=== PATIENT | male | born 1935 | race Caucasian/White ===

== ENCOUNTER 2017-08-01 13:36 | Emergency (ER) | payer MEDICARE, OTHER ==
[~2017-08-01] VITALS: Ht 182.9 cm; Wt 97.1 kg
[~2017-08-01 13:36] MED LIST: ACETAMINOPHEN325 M1 PO; AMIODARONE HCL200 MG PO; ASPIRIN EC325 MG PO; CENTRUM SILVER1 EAC3 PO; FLAXSEED1000 MG PO; GLIPIZIDE ER10 MG PO; GLIPIZIDE XL10 MG PO; HUMALOG100 UNIT/1 SUB-Q; JANUMET 50-1,01 EACH PO; JANUVIA100 MG PO; LANTUS100 UNITS/ SUB-Q; LIPITOR40 MG PO; LISINOPRIL5 MG PO; MELATONIN3 MG PO; METOPROLOL SUCC25 MG PO; MIRALAX17 GM PO; MULTI VITAMIN1 EACH PO; NITROGLYCERIN0.4 MG SL; OMEPRAZOLE40 MG PO; TRIMETHOBENZAM300 MG PO; TYLENOL325 MG PO; VITAMIN D1000 UNIT PO; VITAMIN D31000 UNI1 PO
[2017-08-01] MEDS ORDERED: NOVOLIN N100 UNIT/1 SUB-Q (13:52)
[2017-08-01] MEDS ORDERED: ELIQUIS5 MG PO (18:04)
[2017-08-01] MEDS ORDERED: NORCO 10-325 T1 EACH PO (19:11)
--- OUTSIDE RECORDS SUMMARY | 2017-08-01 19:26 | XMS | Encounter Summary ---
Demographics + + + | Address | [address] | | | [place] [address] | + + + | Home Phone | | + + + | Preferred Language | Unknown | + + + | Marital Status | | + + + | Jainism Affiliation | MET | + + + | Race | White | + + + | Ethnic Group | Not or | + + + Author + + + | Author | [facility] | + + + | Organization | [facility] | + + + | Address | Unknown | + + + | Phone | Unavailable | + + + Support +------+ + + + +-------+ | Name | Relationship | Address | Phone | +------+ + + + +-------+ ECON | [address] | | [place] | [address] | +------+ + + + +-------+ ECON | Unknown | | +------+ + + + +-------+ Care Team Providers + +------+-------+ | Care Seasonal Driver Name | Role | Phone | + +------+-------+ | Mukesh Reich MD | PCP | tel | + +------+-------+ Encounter Details +--------+ + + + + | Date | Type | Department | Care Team | Description | +--------+ + + + + | 05/23/ | Hospital | Dermatopathology | | | | 2016 | Encounter | [address] | | | | | | Mail Code: CH16D | | | | | | [facility] | | | | | | and Healing, 5th | | | | | | floor [place], [place] | | | | | | [address] | | | | | | [phone] | | | +--------+ + + + + Social History + +-------+ +--------+------+ | Tobacco Use | Types | Packs/Day | Years | Date | | | | | Used | | + +-------+ +--------+------+ | Never Smoker | | | | | + +-------+ +--------+------+ + +---+---+---+ | Smokeless Tobacco: | | | | | Never Used | | | | + +---+---+---+ + + +---------+ + | Alcohol Use | Drinks/We | oz/Week | Comments | | | ek | | | + + +---------+ + | Yes | | | rarely | + + +---------+ + + + + | Sex Assigned at | Date Recorded | | | | + + + | Not on file | | + + + as of this encounter Medications at Time of Discharge + + +---------+---------+ + + | Medication | Sig. | Disp. | Refills | Start | End Date | | | | | | Date | | + + +---------+---------+ + + | acetaminophen 325 | Take 2 tablets by | | | 06/10/20 | | | mg oral tablet | mouth every six | | | 14 | | | | hours as needed. | | | | | + + +---------+---------+ + + | atorvastatin 80 mg | Take 1 tablet by | 90 | 3 | 04/25/20 | | | oral tablet | mouth once daily. | tablet | | 17 | | + + +---------+---------+ + + | Blood Sugar | Use as directed to | 450 | 3 | 08/24/19 | | | Diagnostic (ONETOUCH | test 5 times daily | each | | 17 | | | VERIO) strip | | | | | | + + +---------+---------+ + + | cholecalciferol, | Take 1,000 Units by | | | | | | Vitamin D3, (VITAMIN | mouth once daily. | | | | | | D) 1,000 unit Oral | | | | | | | Tablet | | | | | | + + +---------+---------+ + + | citalopram 10 mg | Take 10 mg by mouth | | 3 | 11/02/19 | | | oral tablet | once daily. | | | 16 | | + + +---------+---------+ + + | ELIQUIS 5 mg oral | TAKE 1 TABLET BY | 60 | 10 | 04/23/20 | | | tablet | MOUTH TWICE DAILY | tablet | | 17 | | | | FOR STROKE | | | | | | | PREVENTION IN ATRIA | | | | | | | FIBILLATION. | | | | | + + +---------+---------+ + + | FLAXSEED OIL ORAL | Take 1 Tab by mouth | | | | | | | once daily. | | | | | + + +---------+---------+ + + | | Take 1 tablet by | 40 | 0 | 09/08/19 | | | HYDROcodone-acetamin | mouth every four | tablet | | 17 | | | ophen (NORCO) 5-325 | hours as needed. | | | | | | mg oral tablet | | | | | | + + +---------+---------+ + + | insulin aspart | Sliding scale | 15 mL | 11 | 11/30/19 | | | (NOVOLOG FLEXPEN) | 150-200=1u, | | | 17 | | | 100 unit/mL | 201-250=2u, | | | | | | subcutaneous insulin | 251-300=3u, | | | | | | pen | 301-350=4u, above | | | | | | | 350=5u (inject up to | | | | | | | 20 units total | | | | | | | daily) | | | | | + + +---------+---------+ + + | insulin glargine | 25 units once daily | 15 mL | 11 | 11/02/19 | | | (LANTUS SOLOSTAR) | adjusted as directed | | | 17 | | | 100 unit/mL (3 mL) | | | | | | | subcutaneous insulin | | | | | | | pen | | | | | | + + +---------+---------+ + + | Insulin | Use to inject | 100 | 11 | 10/26/19 | | | Syringe-Needle U-100 | insulin once daily. | Syringe | | 16 | | | 0.3 mL 31 x 5/16" | | | | | | | syringe | | | | | | + + +---------+---------+ + + | LANTUS 100 unit/mL | INJECT 30 UNITS | 10 mL | 10 | 04/30/20 | | | subcutaneous | DAILY. | | | 17 | | | solution | | | | | | + + +---------+---------+ + + | lisinopril 5 mg | Take 1 tablet by | 90 | 3 | 08/18/19 | | | oral tablet | mouth once daily. | tablet | | 16 | | + + +---------+---------+ + + | metFORMIN SR 750 | Take 1 tablet by | 90 | 11 | 01/02/20 | | | mg oral tablet | mouth three times | tablet | | 17 | | | extended release 24 | daily. With food. | | | | | | hr | | | | | | + + +---------+---------+ + + | METOPROLOL | TAKE ONE TABLET BY | 90 | 2 | 03/29/20 | | | SUCCINATE 50 mg oral | MOUTH EVERY DAY | tablet | | 17 | | | tablet extended | | | | | | | release 24 hr | | | | | | + + +---------+---------+ + + | multivitamin Oral | Take 1 Tab by mouth | | | | | | Tablet | once daily. | | | | | + + +---------+---------+ + + | JESS PEN NEEDLE 32 | USE TO TEST BLOOD | 200 | 10 | 10/27/19 | | | gauge x 5/32" | SUGAR 4 TIMES DAILY | each | | 17 | | | miscellaneous (misc) | | | | | | | needle | | | | | | + + +---------+---------+ + + | omeprazole 20 mg | Take 1 capsule by | 90 | 3 | 06/03/20 | | | oral capsule,delayed | mouth once daily. | capsule | | 15 | | | release(DR/EC) | | | | | | + + +---------+---------+ + + | UBIDECARENONE/VIT | Take 1 capsule by | | | | | | E ACETATE (Q-GEL | mouth once daily. | | | | | | ORAL) | | | | | | + + +---------+---------+ + + as of this encounter Plan of Treatment +--------+ + + + + | Date | Type | Specialty | Care Team | Description | +--------+ + + + + | 10/30/ | Procedure | Ophthalmology | | | | 2017 | | | | | +--------+ + + + + | 10/30/ | Office | Ophthalmology | Cherelle Patricia | | | 2017 | Kenan | | MD Corinne [address] | | | | | | [place], [place] | | | | | | [address] | | | | | | [phone] | | | | | | | | +--------+ + + + + as of this encounter Results DERM PATHOLOGY (05/23/2017) + + + + | Component | Value | Ref Range | + + + + | DERMATOPATHOLOGY(WET | SOURCE OF SPECIMEN:A Lt. anterior shoulder, | | | MNT) | excision CLINICAL DESCRIPTION:Bx | | | | proven BCC, previous [id number]. | | | | GROSS DESCRIPTION:Received in formalin is a | | | | specimen labeled Elder Roy:A: | | | | Specimen is labeled "L anterior shoulder" | | | | and consists of an ellipse ofcrusted | | | | wfm-kki-eiums skin, [id number]. The specimen | | | | is oriented by a sutureat one apex, which | | | | is arbitrarily designated as 12:00. With | | | | the suture inthe 12:00 position, the | | | | specimen is inked blue from 12:00-3:00-6:00 | | | | andblack from 6:00-9:00-12:00. The | | | | tissue is serially sectioned from 12:00 | | | | to6:00 and submitted respectively in | | | | cassettes A1 | | | | | | | | A6. MICROSCOPIC DESCRIPTION:There | | | | are an increased number of collagen bundles | | | | with fibrocytes arrangedparallel to the | | | | skin surface with vertically oriented blood | | | | vessels. DIAGNOSIS:SCAR. 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 Away from thescar, there is an | | | | incidental MELANOCYTIC NEVUS, INTRADERMAL | | | | TYPE, alsoexcised. My electronic | | | | signature indicates that I have personally | | | | reviewed alldiagnostic slides, the gross | | | | and/or microscopic portion of thisreport | | | | and formulated the final diagnosis. | | | | Electronically signed by: Jory | | | | Elizabeth LundbergPathologistDate Completed: | | | | 05/25/2017 11:14AM | | + + + + + + + | Specimen | Performing Laboratory | + + + | | [facility] Mailcode [facility] [address] [facility] | | | [place] [address] | + + + in this encounter Visit Diagnoses + + | Diagnosis | + + | Scar conditions and fibrosis of skin | + + | Scar condition and fibrosis of skin | + + Admitting Diagnoses + + | Diagnosis | + + | Neoplasm of uncertain behavior of skin | + +
--- OUTSIDE RECORDS SUMMARY | 2017-08-01 19:26 | XMS | Encounter Summary ---
Demographics + + + | Address | [address] | | | [place] [address] | + + + | Home Phone | | + + + | Preferred Language | Unknown | + + + | Marital Status | | + + + | Yarsanism Affiliation | MET | + + + | Race | White | + + + | Ethnic Group | Not or | + + + Author + + + | Author | [facility] | + + + | Organization | [facility] | + + + | Address | Unknown | + + + | Phone | Unavailable | + + + Support +------+ + + + +-------+ | Name | Relationship | Address | Phone | +------+ + + + +-------+ ECON | [address] | | [place] | [address] | +------+ + + + +-------+ ECON | Unknown | | +------+ + + + +-------+ Care Team Providers + +------+-------+ | Care Finance Lecturer Name | Role | Phone | + +------+-------+ | Mukesh Reich MD | PCP | tel | + +------+-------+ Reason for Visit + + + | Reason | Comments | + + + | Refill Request | [email or web address] | + + + Encounter Details +--------+--------+ + + + | Date | Type | Department | Care Team | Description | +--------+--------+ + + + | 07/27/ | Refill | Ar[facility] | Renetta Pollard | Refill Request | | 2016 | | [facility] | MD Elijah [address] | (glipiZIDE ) | | | | [facility] | [facility] | | | | | Mary [address] | [place], [place] | | | | | [facility] | [address] | | | | | [address] [facility] | [phone] | | | | | [address] | | | | | | [facility] | | | | | | [place], [place] | | | | | | [address] | | | | | | [phone] | | | +--------+--------+ + + + Social History + +-------+ [...] + + + as of this encounter Plan [...] Cherelle Patricia | | | 2017 | Visit | | MD Corinne [address] | | | | | | [place], [place] | | | | | | [address] | | | | | | [phone] | | | | | | | | +--------+ + + + + as of this encounter Visit Diagnoses Not on filein this encounter"
--- OUTSIDE RECORDS SUMMARY | 2017-08-01 19:26 | XMS | Clinical Summary ---
Demographics + + + | Address | [address] | | | [place] [address] | + + + | Home Phone | | + + + | Preferred Language | Unknown | + + + | Marital Status | | + + + | Alevism Affiliation | MET | + + + | Race | White | + + + | Ethnic Group | Not or | + + + Author + + + | Author | [facility] | + + + | Organization | [facility] | + + + | Address | Unknown | + + + | Phone | Unavailable | + + + Support +------+ + + + +-------+ | Name | Relationship | Address | Phone | +------+ + + + +-------+ ECON | [address] | | [place] | [address] | +------+ + + + +-------+ ECON | Unknown | | +------+ + + + +-------+ Care Team Providers + +------+-------+ | Care Hot Patcher Name | Role | Phone | + +------+-------+ | Mukesh Reich MD | PP | tel | + +------+-------+ Source Comments [facility] is fully live on both EpicCare Ambulatory and EpicCare InPatient.[facility] Allergies + + + + + + | Active Allergy | Reactions | Severity | Noted | Comments | | | | | Date | | + + + + + + | Penicillins | Hives | | 07/19/20 | Reaction in | | | | | 09 | 1962--red welts | | | | | | throughout | + + + + + + Current Medications + + +---------+---------+------+------+-------+ | Prescription | Sig. | Disp. | Refills | Star | End | Statu | | | | | | t | Date | s | | | | | | Date | | | + + +---------+---------+------+------+-------+ | FLAXSEED OIL ORAL | Take 1 Tab by mouth | | | | | Activ | | | once daily. | | | | | e | + + +---------+---------+------+------+-------+ | multivitamin Oral | Take 1 Tab by mouth | | | | | Activ | | Tablet | once daily. | | | | | e | + + +---------+---------+------+------+-------+ | cholecalciferol, | Take 1,000 Units by | | | | | Activ | | Vitamin D3, (VITAMIN | mouth once daily. | | | | | e | | D) 1,000 unit Oral | | | | | | | | Tablet | | | | | | | + + +---------+---------+------+------+-------+ | UBIDECARENONE/VIT | Take 1 capsule by | | | | | Activ | | E ACETATE (Q-GEL | mouth once daily. | | | | | e | | ORAL) | | | | | | | + + +---------+---------+------+------+-------+ | acetaminophen 325 | Take 2 tablets by | | | 11/1 | | Activ | | mg oral tablet | mouth every six | | | 2/20 | | e | | | hours as needed. | | | 14 | | | + + +---------+---------+------+------+-------+ | omeprazole 20 mg | Take 1 capsule by | 90 | 3 | 11/0 | | Activ | | oral capsule,delayed | mouth once daily. | capsule | | 5/20 | | e | | release(DR/EC) | | | | 15 | | | + + +---------+---------+------+------+-------+ | lisinopril 5 mg | Take 1 tablet by | 90 | 3 | 01/2 | | Activ | | oral tablet | mouth once daily. | tablet | | 0/20 | | e | | | | | | 16 | | | + + +---------+---------+------+------+-------+ | Insulin | Use to inject | 100 | 11 | 03/2 | | Activ | | Syringe-Needle U-100 | insulin once daily. | Syringe | | 04/18 | | e | | 0.3 mL 31 x 16" | | | | 16 | | | | syringe | | | | | | | + + +---------+---------+------+------+-------+ | citalopram 10 mg | Take 10 mg by mouth | | 3 | 04/0 | | Activ | | oral tablet | once daily. | | | 5/20 | | e | | | | | | 16 | | | + + +---------+---------+------+------+-------+ | ONETOUCH ULTRA | Testing 5 times | 450 | 3 | 10/1 | | Activ | | TEST | daily | each | | 4/20 | | e | | stripIndications: | | | | 16 | | | | Type 2 diabetes | | | | | | | | mellitus without | | | | | | | | complication, with | | | | | | | | long-term current | | | | | | | | use of insulin (HCC) | | | | | | | + + +---------+---------+------+------+-------+ | Blood Sugar | Use as directed to | 450 | 3 | 01/2 | | Activ | | Diagnostic (ONETOUCH | test 5 times daily | each | | 6/20 | | e | | VERIO) strip | | | | 17 | | | + + +---------+---------+------+------+-------+ | | Take 1 tablet by | 40 | 0 | 02/1 | | Activ | | HYDROcodone-acetamin | mouth every four | tablet | | 0/20 | | e | | ophen (NORCO) 5-325 | hours as needed. | | | 17 | | | | mg oral tablet | | | | | | | + + +---------+---------+------+------+-------+ | JESS PEN NEEDLE 32 | USE TO TEST BLOOD | 200 | 10 | 03/3 | | Activ | | gauge x 32" | SUGAR 4 TIMES DAILY | each | | 0/20 | | e | | miscellaneous (misc) | | | | 17 | | | | needle | | | | | | | + + +---------+---------+------+------+-------+ | insulin glargine | 25 units once daily | 15 mL | 11 | 04/0 | | Activ | | (SINA NEWMANAR) | adjusted as directed | | | 12/16 | | e | | 100 unit/mL (3 mL) | | | | 17 | | | | subcutaneous insulin | | | | | | | | pen | | | | | | | + + +---------+---------+------+------+-------+ | insulin aspart | Sliding scale | 15 mL | 11 | 05/0 | | Activ | | (NOVOLOG FLEXPEN) | 150-200=1u, | | | 3/20 | | e | | 100 unit/mL | 201-250=2u, | | | 17 | | | | subcutaneous insulin | 251-300=3u, | | | | | | | pen | 301-350=4u, above | | | | | | | | 350=5u (inject up to | | | | | | | | 20 units total | | | | | | | | daily) | | | | | | + + +---------+---------+------+------+-------+ | metFORMIN SR 750 | Take 1 tablet by | 90 | 11 | 06/0 | | Activ | | mg oral tablet | mouth three times | tablet | | 5/20 | | e | | extended release 24 | daily. With food. | | | 17 | | | | hr | | | | | | | + + +---------+---------+------+------+-------+ | METOPROLOL | TAKE ONE TABLET BY | 90 | 2 | 08/3 | | Activ | | SUCCINATE 50 mg oral | MOUTH EVERY DAY | tablet | | 1/20 | | e | | tablet extended | | | | 17 | | | | release 24 hr | | | | | | | + + +---------+---------+------+------+-------+ | ELIQUIS 5 mg oral | TAKE 1 TABLET BY | 60 | 10 | 09/2 | | Activ | | tablet | MOUTH TWICE DAILY | tablet | | 5/20 | | e | | | FOR STROKE | | | 17 | | | | | PREVENTION IN ATRIA | | | | | | | | FIBILLATION. | | | | | | + + +---------+---------+------+------+-------+ | atorvastatin 80 mg | Take 1 tablet by | 90 | 3 | 09/2 | | Activ | | oral tablet | mouth once daily. | tablet | | 7/20 | | e | | | | | | 17 | | | + + +---------+---------+------+------+-------+ | LANTUS 100 unit/mL | INJECT 30 UNITS | 10 mL | 10 | 10/0 | | Activ | | subcutaneous | DAILY. | | | 2/20 | | e | | solution | | | | 17 | | | + + +---------+---------+------+------+-------+ | glipiZIDE ER 10 mg | Take 1 tablet by | 90 | 5 | 12/2 | 12/3 | Activ | | oral tablet | mouth once daily. 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 heart without angina pectoris | | + + + | Ischemic cardiomyopathy | 04/05/2016 | + + + | Essential hypertension | 04/05/2016 | + + + | A-fib (HCC) | 06/03/2015 | + + + | Stroke (HCC) | 07/03/2014 | + + + | S/P CABG x 2 | 06/02/2014 | + + + | DM type 2 (diabetes mellitus, type 2) ([facility]) | 06/10/2011 | + + + | Hyperlipidemia with target LDL less than 100 | 06/10/2011 | + + + | Neuropathy (HCC) | 06/10/2011 | + + + | Chest pain | 06/09/2010 | + + + Encounters +--------+ + + + + | Date | Type | Specialty | Care Team | Description | +--------+ + + + + | 07/27/ | Refill | | Renetta Pollard | Refill Request | | 2016 | | | MD Elijah | ([email or web address] ) | +--------+ + + + + | 05/23/ | Hospital | | | | | 2016 | Encounter | | | | +--------+ + + + + | 05/11/ | Office | | Renetta Pollard | Controlled type 2 | | 2017 | Visit | | MD Elijah | diabetes mellitus | | | | | | without | | | | | | complication, with | | | | | | long-term current | | | | | | use of insulin (HCC) | | | | | | (Primary Dx); | | | | | | Neuropathy (HCC); | | | | | | S/P CABG x 2; | | | | | | Essential | | | | | | hypertension; | | | | | | Hyperlipidemia with | | | | | | target LDL less than | | | | | | 100 | +--------+ + + + + from Last 3 Months Family History + + +------+ + | Medical History | Relation | Name | Comments | + + +------+ + | Diabetes | Father | | | + + +------+ + | Glasses | Father | | | + + +------+ + | Glasses | Mother | | | + + +------+ + + +------+--------+ + | Relation | Name | Status | Comments | + +------+--------+ + | Father | | | | + +------+--------+ + | Mother | | | | + +------+--------+ + Social History + +-------+ +--------+------+ | [...] on file | | + + + Last Filed Vital Signs + + + + | Vital Sign | Reading | Time Taken | + + + + | Blood Pressure | 122/68 | 05/11/2017 1:51 PM PDT | + + + + | Pulse | 63 | 05/11/2017 1:51 PM PDT | + + + + | Temperature | 36.6 C (97.8 F) | 10/02/2016 2:09 PM PST | + + + + | Respiratory Rate | 17 | 10/02/2016 2:09 PM PST | + + + + | Oxygen Saturation | 96% | 12/13/2016 3:05 PM PDT | + + + + | Inhaled Oxygen | - | - | | Concentration | | | + + + + | Weight | 98 kg (216 lb) | 05/11/2017 1:51 PM PDT | + + + + | Height | 184.2 cm (6' 0.5") | 05/11/2017 1:51 PM PDT | + + + + | Body Mass Index | 28.89 | 05/11/2017 1:51 PM PDT | + + + + Plan of Treatment +--------+ + + + + | Date | Type | Specialty | Care Team | Description | +--------+ + + + + | 10/30/ | Procedure | | | | | 2018 | | | | | +--------+ + + + + | 10/30/ | Office | | Cherelle Patricia | | | 2017 | Visit | | MD Corinne [address] | | | | | | [place], [place] | | | | | | [address] | | | | | | [phone] | | | | | | | | +--------+ + + + + + + + + + | Health Maintenance | Due Date | Last Done | Comments | + + + + + | PPSV PNEUMOCOCCAL | | | | | VACCINE | 1 | | | + + + + + | CHOLESTEROL | | 06/21/2016, 06/21/2016, | | | SCREENING | 7 | 12/23/2014, Additional history | | | | | exists | | + + + + + | URINE MICROALBUMIN | | 06/21/2016, 11/07/2011, | | | | 7 | 05/29/2011, Additional history | | | | | exists | | + + + + + | CREATININE | | 08/23/2016, 06/21/2016, | | | | 8 | 12/23/2014, Additional history | | | | | exists | | + + + + + | DIABETIC EYE EXAM | | 10/24/2016, 11/18/2015, | | | | 8 | 12/24/2014 | | + + + + + | HEMOGLOBIN A1C | | 05/11/2017, 12/11/2016, | | | | 8 | 08/23/2016, Additional history | | | | | exists | | + + + + + | MONOFILAMENT FOOT | | 05/11/2017, 12/13/2016, | | | EXAM | 8 | 08/23/2016, Additional history | | | | | exists | | + + + + + Implants + +------+------+ +--------+--------+--------+ | Implanted | Type | Area | Manufacture | Device | Expira | Model | | | | | r | | tion | / | | | | | | Identi | Date | Serial | | | | | | fier | | / Lot | + +------+------+ +--------+--------+--------+ | Plate Sternum Wire Acutie - | | | ACUTE | | | [id number] | | [id number]: Qty: 2 on | | | INNOVATIONS | | | 4 / / | | 06/02/2014 | | | | | | | + +------+------+ +--------+--------+--------+ Procedures + +--------+ + + + | Procedure Name | Priori | Date/Time | Associated Diagnosis | Comments | | | ty | | | | + +--------+ + + + | GA COLLECTION | Routin | 05/11/2017 | Controlled type 2 | | | CAPILLARY BLOOD | e | 1:41 PM | diabetes mellitus | | | SPECIMEN | | PDT | without | | | | | | complication, with | | | | | | long-term current | | | | | | use of insulin (HCC) | | + +--------+ + + + from Last 3 Months Results DERM PATHOLOGY (05/23/2017) + + + + | Component | Value | Ref Range | + + + + | DERMATOPATHOLOGY(WET | SOURCE OF SPECIMEN:A Lt. anterior shoulder, | | | MNT) | excision CLINICAL DESCRIPTION:Bx | | | | proven BCC, previous [id number]. | | | | GROSS DESCRIPTION:Received in formalin is a | | | | specimen labeled Elder Roy:A: | | | | Specimen is labeled "L anterior shoulder" | | | | and consists of an ellipse ofcrusted | | | | [id number]-[id number] skin, [id number]. The specimen | | | | is [...] | + + + | | [facility] [address] [facility] | | | [place] [address] | + + + HEMOGLOBIN A1C,POC (05/11/2017 1:58 PM) + +---------+ + | Component | Value | Ref Range | + +---------+ + | HEMOGLOBIN A1C,POC | 7.4 (A) | 4.0 - 5.7 % | + +---------+ + + + + | Specimen | Performing Laboratory | + + + | Blood | [facility] [address] | | | [place] [address] | + + + from Last 3 Months
--- OUTSIDE RECORDS SUMMARY | 2017-08-01 19:27 | XMS | Encounter Summary ---
Demographics + + + | Address | [address] | | | [place] [address] | + + + | Home Phone | | + + + | Preferred Language | Unknown | + + + | Marital Status | | + + + | Anabaptism Affiliation | MET | + + + | Race | White | + + + | Ethnic Group | Not or | + + + Author + + + | Author | [facility] | + + + | Organization | [facility] | + + + | Address | Unknown | + + + | Phone | Unavailable | + + + Support +------+ + + + +-------+ | Name | Relationship | Address | Phone | +------+ + + + +-------+ ECON | [address] | | [place] | [address] | +------+ + + + +-------+ ECON | Unknown | | +------+ + + + +-------+ Care Team Providers + +------+-------+ | Care Organ Fixer Name | Role | Phone | + +------+-------+ | Mukesh Reich MD | PCP | tel | + +------+-------+ Reason for Visit + + + | Reason | Comments | + + + | Diabetes mellitus | | | type 2 | | + + + Office Visit - E/M Services (Routine) +--------+ + + + + + | Status | Reason | Specialty | Diagnoses / | Referred By | Referred To | | | | | Procedures | Contact | Contact | +--------+ + + + + + | Closed | Specialty | Endocrinology | Diagnoses | Damir, | Latrice, | | | Services | , Diabetes & | DM | Mukesh | Renetta Nava, | | | Required | Metabolism | (diabetes | MD Clay | [address] | | | | | mellitus), | JO[place] | Jony Solit[address] | | | | | type 2 (HCC) | INTERNAL | Ankita Li | | | | | Procedures | MEDICINE | [place], [place] | | | | | | [address] | [address] | | | | | [address] | [place] | Phone: | | | | | | [address] | [phone] | | | | | | [place], | Fax: | | | | | | [place] [address] | [phone] | | | | | | Phone: | | | | | | | [phone] | | | | | | | Fax: | | | | | | | [phone] | | +--------+ + + + + + Encounter Details +--------+---------+ + + + | Date | Type | Department | Care Team | Description | +--------+---------+ + + + | 05/11/ | Office | Aram Alves | Renetta Pollard | Controlled type 2 | | 2017 | Visit | Diabetes Health | MD Elijah [address] | diabetes mellitus | | | | [facility] | [address] | without | | | | [facility] [address] | [place], [place] | complication, with | | | | [address] | [address] | long-term current | | | | [facility] | [phone] | use of insulin (HCC) | | | | [facility] [address] | | (Primary Dx); | | | | [facility] | | Neuropathy (HCC); | | | | [place], [place] | | S/P CABG x 2; | | | | [address] | | Essential | | | | [phone] | | hypertension; | | | | | | Hyperlipidemia with | | | | | | target LDL less than | | | | | | 100 | +--------+---------+ + + + Social History + +-------+ [...] + + + as of this encounter Last Filed Vital Signs + + + + | Vital Sign | Reading | Time Taken | + + + + | Blood Pressure | 122/68 | 05/11/2017 1:51 PM PDT | + + + + | Pulse | 63 | 05/11/2017 1:51 PM PDT | + + + + | Temperature | - | - | + + + + | Respiratory Rate | - | - | + + + + | Oxygen Saturation | - | - | + + + + | Inhaled [...] PM PDT | + + + + in this encounter Instructions Patient Instructions - Renetta Pollard MD - 05/11/2017 1:30 PM PDTTry 6 oz of chocola te milk or other small snack in the mid afternoon Consider MyFitness Pal to track your food/activity Reduce Lantus to 28 units once daily if you continue to have the borderline lows late after noon Continue Novolog sliding scale as needed Keep juice/granola bars with you at all times in this encounter Progress Notes Kriss Mckinney MA - 05/11/2017 1:41 PM PDT Finger stick performed in clinic for a capillary A1c. Renetta Pollard MD - 05/11/2017 1:30 PM PDTFormatting of this note may be different f rom the original. Clinic: Diabetes clinic PCP: Maico Reich Follow up of Type 2 Diabetes Mellitus HPI: Elder is a 81 y.o. 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 He has never been hospitalized for diabetes. He has had 3 endocrinologists in the past. Previously on janum et bid and glipizide. This was previously stopped due to some hypoglycemia. Had no difficu lty with renal function. Prior c-peptide of 5.5. Complications: Has chronic numbness and discomfort in his feet but no new skin lesions. Eye health --Diabetic retinopathy He had CABG previously with fluctuations in his blood sugars perioperatively. Had complicat ion of infection post surgery--at right leg harvest site-healed. S/p cardiac rehab which is intermittently continued He has no history of pancreatitis or markedly high triglycerides. Interim: Here today with his and daughter Increased attention to diet Weight loss Feeling more positive today Lantus 30 units daily Metformin 750 mg ER tablets increased to 3 tablets daily. Meal time insulin 2 to 3 units plus sliding scale. Fasting blood sugars improved Occasional late afternoon borderline low if meal is missed (feels low if 100 or less) His notices personality change--unusually irritable if this occurs No severe lows He previously was on Janumet, Glipizide once daily. Subsequently Januvia was stopped and Victoza started. We recall he did not tolerate Victoza--had bloating Instructions last visit: Change to one 750 mg tablet of metformin in the morning and two at night Continue Lantus 30 units once daily at bedtime Continue glipizide 10 mg ER once daily Novolog 2 units to 3 units plus the sliding scale Add in bed time blood sugar check Call in one week to review blood sugar trends Diabetes medications: Metformin 750 mg ER , three tablets daily Glipizide 10 mg ER once daily Lantus 30 units hs Novolog sliding scale --2u meal time plus SSI Monitoring: Has a meter and monitors about 4 times daily Glucose Control: Periodic hyperglycemia that he can explain due to dietary indiscretion Lab Results Component Value Date A1C 7.4 05/11/2017 Hypoglycemia: none severe Diabetes complications review: Eyes: last eye exam - no DR Kidneys--stable creatinine Lab Results Component Value Date CR 0.76 08/23/2016 CR 0.67 (A) 06/21/2016 CR 0.87 12/23/2014 Neuropathy: some numbness and tingling chronically--but also has history of back surgery Autonomic neuropathy: no known symptoms Cardiovascular disease: CAD, s/p CABG PMH: Diabetes mellitus type 2 Metabolic syndrome Hypertension Hyperlipidemia Obesity Male erectile disorder History of back / neck surgery Bone spurs Decreased hearing No history of pancreatitis CAD, s/p CABG Influenza vaccine Apr 2014 Shingles vaccine 2007 Current Outpatient Prescriptions on File Prior to Visit Medication Sig Dispense Refill acetaminophen 325 mg oral tablet Take 2 tablets by mouth every six hours as needed. atorvastatin 80 mg oral tablet Take 1 tablet by mouth once daily. 90 tablet 3 Blood Sugar Diagnostic ([employer] VERIO) strip Use as directed to test 5 times daily 450 each 3 cholecalciferol, Vitamin D3, (VITAMIN D) 1,000 unit Oral Tablet Take 1,000 Units by jayson th once daily. citalopram 10 mg oral tablet Take 10 mg by mouth once daily. 3 ELIQUIS 5 mg oral tablet TAKE 1 TABLET BY MOUTH TWICE DAILY FOR STROKE PREVENTION IN [facility]. 60 tablet 10 FLAXSEED OIL ORAL Take 1 Tab by mouth once daily. glipiZIDE ER 10 mg oral tablet extended release 24hr Take 1 tablet by mouth once daily. Indications: TYPE 2 DIABETES MELLITUS 90 tablet 5 HYDROcodone-acetaminophen (NORCO) 5-325 mg oral tablet Take 1 tablet by mouth every fou r hours as needed. 40 tablet 0 insulin aspart (NOVOLOG FLEXPEN) 100 unit/mL subcutaneous insulin pen Sliding scale 150 -200=1u, 201-250=2u, 251-300=3u, 301-350=4u, above 350=5u (inject up to 20 units total daily ) 15 mL 11 insulin glargine (LANTUS SOLOSTAR) 100 unit/mL (3 mL) subcutaneous insulin pen 25 units once daily adjusted as directed 15 mL 11 Insulin Syringe-Needle U-100 0.3 mL 31 x 5/16" syringe Use to inject insulin once daily . 100 Syringe 11 LANTUS 100 unit/mL subcutaneous solution INJECT 30 UNITS DAILY. 10 mL 10 lisinopril 5 mg oral tablet Take 1 tablet by mouth once daily. 90 tablet 3 metFORMIN SR 750 mg oral tablet extended release 24 hr Take 1 tablet by mouth three israel es daily. With food. 90 tablet 11 METOPROLOL SUCCINATE 50 mg oral tablet extended release 24 hr TAKE ONE TABLET BY MOUTH EVERY DAY 90 tablet 2 multivitamin Oral Tablet Take 1 Tab by mouth once daily. JESS PEN NEEDLE 32 gauge x 5/32" miscellaneous (misc) needle USE TO TEST BLOOD SUGAR 4 TIMES DAILY 200 each 10 omeprazole 20 mg oral capsule,delayed release(DR/EC) Take 1 capsule by mouth once daily . 90 capsule 3 ONETOUCH ULTRA TEST strip Testing 5 times daily 450 each 3 UBIDECARENONE/VIT E ACETATE (Q-GEL ORAL) Take 1 capsule by mouth once daily. No current facility-administered medications on file prior to visit. 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 ROS: Review of systems as stated in [place]. Other pertinent review of systems includes: Weight: Wt Readings from Last 3 Encounters: 05/11/17 98 kg (216 lb) 12/13/16 97.1 kg (214 lb) 12/13/16 97.1 kg (214 lb) Gen: feeling better, more energy, going to rehab twice a week with good tolerance, has new cane for balance HEENT: no visual changes Psych: mood: less frustrated overall does not have "get up an go" CV: no chest pain, no lower extremity edema Pulm: no sob ENDO: no heat intolerance or cold intolerance--no : no polyuria--has history of episode of hematuria (none recently) Neuro: distal numbness and tingling: yes--chronic on the right foot, mild, unchanged Recurrent problems with balance improved with cane Sleep: no history of apnea . PE: Vitals: BP 122/68 | Pulse 63 | Ht 1.842 m (6' 0.5") | Wt 98 kg (216 lb) | BMI 28.89 kg/(m^2 ) General: alert, oriented, NAD HEENT: perrla, eomi, sclera anicteric Lungs: clear to auscultation CV: regular rate and rhythm; no murmur, rub or gallop appreciated Monofilament examination performed, abnormal. Skin: some evenly distributed mild pinkish/purplish discoloration of his feet which per pat ient has been present for about a year or two Labs: Lab Results Component Value Date A1C 7.4 05/11/2017 A1C 7.5 12/11/2016 A1C 7.5 08/23/2016 A1C 6.7 06/21/2016 Lab Results Component Value Date NA 140 08/23/2016 K 4.0 08/23/2016 CL 106 08/23/2016 BICARB 24 08/23/2016 BUN 21 08/23/2016 CR 0.76 08/23/2016 GLU 210 09/08/2016 CA 8.8 08/23/2016 AST 19 06/21/2016 ALT 26 06/21/2016 AP 71 06/21/2016 TBILI 0.6 06/21/2016 TP 6.1 06/21/2016 ALB 3.7 06/21/2016 DIRBILI 0.15 06/11/2012 Data: Home glucose log reviewed in detail Assessment: 1. Diabetes mellitus, complicated by CABG . -glycemic control improved --did not tolerate Victoza --metformin transitioned to 750 mg ER--recently increased to three tablets daily (suggest d ecrease to two tablets daily if change/increase in creatinine noted) --Lantus currently at 30u daily and Glipizide 10 mg ER daily --Novolog with meals 2u to 3u + SSI with meals --Rare blood sugars in the 70s to 100s 2. CAD s/p CABG 3. Dyslipidemia with LDL at goal, continue atorvastatin 4. Neuropathy --difficulty with balance--improved with cane to help with stability 5. Depressive symptoms --on treatment -- appears to have more positive outlook today Plan: Discussion and supportive counseling about goals of care, glucose monitoring and insulin do se adjustments, medication changes, nutrition, strategies to avoid low blood sugars Patient Instructions Try 6 oz of chocolate milk or other small snack in the mid afternoon Consider MyFitness Pal to track your food/activity Reduce Lantus to 28 units once daily if you continue to have the borderline lows late after noon Continue Novolog sliding scale as needed Keep juice/granola bars with you at all times Orders Placed This Encounter AL Collection Capillary Blood Specimen [[id number]] only for Adults Lab Results Component Value Date A1C 7.4 (A) 05/11/2017 Renetta Polladr MD I spent 35 minutes with the patient with >50% face to face counseling regarding medication management, adjustment strategies, additional evaluation and coordination of care. in this encounter Plan of Treatment +--------+ + + + + | Date | Type | Specialty | Care Team | Description | +--------+ + + + + | 10/30/ | Procedure | Ophthalmology | | | | 2018 | | | | | +--------+ + + + + | 10/30/ | Office | Ophthalmology | Cherelle Patricia | | | 2018 | Visit | | MD Corinne [address] | | | | | | [place], [place] | | | | | | [address] | | | | | | [phone] | | | | | | | | +--------+ + + + + as of this encounter Procedures + +--------+ + + + | Procedure Name | Priori | Date/Time | Associated Diagnosis | Comments | | | ty | | | | + +--------+ + + + | AL COLLECTION | Routin | 05/11/2017 | Controlled [...] | | + +--------+ + + + in this encounter Results HEMOGLOBIN A1C,POC (05/11/2017 1:58 PM) + +---------+ + | Component | Value | Ref Range | + +---------+ + | HEMOGLOBIN A1C,POC | 7.4 (A) | 4.0 - 5.7 % | + +---------+ + + + + | Specimen | Performing Laboratory | + + + | Blood | [facility] [address] | | | [place] [address] | + + + in this encounter Visit Diagnoses + + | Diagnosis | + + | Controlled type 2 diabetes mellitus without complication, with long-term current use of | | insulin (HCC) - Primary | + + | Neuropathy (HCC) | + + | Mononeuritis of unspecified site | + + | S/P CABG x 2 | + + | Postsurgical aortocoronary bypass status | + + | Essential hypertension | + + | Hyperlipidemia with target LDL less than 100 | + + | Other and unspecified hyperlipidemia | + +
[2017-08-03] MEDS ORDERED: GLUCOPHAGE XR750 MG PO (11:16)
== END 2017-08-01 19:38 | disposition home or self-care (01) ==
LOC: ED 13:36
DX: S42.202A Unspecified fracture of upper end of left humerus, initial encounter for closed fracture (principal); W18.30XA Fall on same level, unspecified, initial encounter; E11.40 Type 2 diabetes mellitus with diabetic neuropathy, unspecified; I25.2 Old myocardial infarction; Z88.0 Allergy status to penicillin; Z79.899 Other long term (current) drug therapy; Z79.82 Long term (current) use of aspirin; Z79.4 Long term (current) use of insulin
CPT/HCPCS: 73030; 96374; 96375; 96376; 99283; J2270; J3010

== ENCOUNTER 2017-08-04 10:08 | Emergency (ER) | payer MEDICARE, OTHER ==
[~2017-08-04] VITALS: Ht 185.4 cm; Wt 97.1 kg
[~2017-08-04 10:08] MED LIST changes: +ELIQUIS5 MG PO; +GLUCOPHAGE XR750 MG PO; +NORCO 10-325 T1 EACH PO; +NOVOLIN N100 UNIT/1 SUB-Q
--- NOTE | 2017-08-06 23:46 | EKG ---
[facility] [address] [place] [address] Signed Normal sinus rhythm Inferior infarct (cited on or before 03-AUG-2017) ST \T\ T wave abnormality, consider anterolateral ischemia Abnormal ECG When compared with ECG of 03-AUG-2017 11:10, No significant change was found Confirmed by CELINA ENRIQUE MD ([id number]) on 08/06/2017 11:46:40 PM Electronically Signed By: CELINA ENRIQUE MD 08/06/17 2346 PATIENT NAME: CAROLYN GREER Electrocardiogram DATE OF : 35 PHYSICIAN: CELINA ENRIQUE MD REPORT #: [id number] REPORT IS CONFIDENTIAL AND NOT TO BE RELEASED WITHOUT AUTHORIZATION
== END 2017-08-04 13:42 | disposition short-term general hospital (02) ==
LOC: ED 10:08
PROC: 0T9B70Z Drainage of Bladder with Drainage Device, Via Natural or Artificial Opening (ICD-10-PCS; principal; 2017-08-04)
DX: N17.9 Acute kidney failure, unspecified (principal); E87.5 Hyperkalemia; S42.302D Unspecified fracture of shaft of humerus, left arm, subsequent encounter for fracture with routine healing; E11.40 Type 2 diabetes mellitus with diabetic neuropathy, unspecified; Z95.1 Presence of aortocoronary bypass graft; Z98.890 Other specified postprocedural states; Z98.52 Vasectomy status; Z88.0 Allergy status to penicillin; Z79.4 Long term (current) use of insulin; Z79.899 Other long term (current) drug therapy
CPT/HCPCS: 51702; 80053; 81001; 85025; 93005; 93010; 94640; 96365; 96375; 99285; J0610; J2405; J7120

== ENCOUNTER 2020-11-07 19:46 | Emergency (ER) | payer MEDICARE, OTHER ==
[~2020-11-07] VITALS: Ht 185.4 cm; Wt 97.1 kg
== END 2020-11-07 22:42 | disposition home or self-care (01) ==
LOC: ED 19:46
DX: S40.012A Contusion of left shoulder, initial encounter (principal); S20.212A Contusion of left front wall of thorax, initial encounter; W01.198A Fall on same level from slipping, tripping and stumbling with subsequent striking against other object, initial encounter; E11.40 Type 2 diabetes mellitus with diabetic neuropathy, unspecified; I25.2 Old myocardial infarction; Z88.0 Allergy status to penicillin; Z79.899 Other long term (current) drug therapy; Z79.4 Long term (current) use of insulin
CPT/HCPCS: 71101; 73030; 73080; 90471; 90715; 99283-25

== ENCOUNTER 2022-01-24 08:31 | Emergency (ER) | payer MEDICARE, OTHER ==
[~2022-01-24] VITALS: Ht 185.4 cm; Wt 97.1 kg
[2022-01-24] MEDS ORDERED: NEURONTIN300 MG PO (12:18)
--- NOTE | 2022-01-24 20:25 | EKG ---
[facility] [address] [place] [address] Signed Accelerated Junctional rhythm with frequent premature ventricular complexes in a pattern of bigeminy Minimal voltage criteria for LVH, may be normal variant ( [place] product ) Nonspecific ST and T wave abnormality Prolonged QT Abnormal ECG When compared with ECG of 04-AUG-2017 11:52, Junctional rhythm has replaced Sinus rhythm QRS duration has increased T wave inversion no longer evident in Anterior leads Confirmed by MIRIAM HDZ MD ([id number]) on 01/24/2022 8:25:14 PM Electronically Signed By: MIRIAM HDZ MD 01/24/222024 PATIENT NAME: CAROLYN GREER Electrocardiogram DATE OF : 35 PHYSICIAN: MIRIAM HDZ MD REPORT #: [id number] REPORT IS CONFIDENTIAL AND NOT TO BE RELEASED WITHOUT AUTHORIZATION
[2022-01-25] MEDS ORDERED: FLOMAX0.4 MG PO (13:55)
[2022-01-25] MEDS ORDERED: ATORVASTATIN CA80 MG PO (17:53)
[2022-01-25] MEDS ORDERED: METFORMIN HCL500 MG PO (17:55)
[2022-01-25] MEDS ORDERED: METOPROLOL SUC200 MG PO (17:55)
[2022-01-25] MEDS ORDERED: DULOXETINE HCL60 MG PO (17:56)
[2022-01-25] MEDS ORDERED: JARDIANCE10 MG PO (17:57)
[2022-01-25] MEDS ORDERED: SPIRONOLACTONE25 MG PO (17:57)
[2022-01-25] MEDS ORDERED: DIGOXIN125 MCG PO (17:58)
[2022-01-25] MEDS ORDERED: INSULIN AS100 UNIT/3 SUB-Q (18:02)
== END 2022-01-24 13:03 | disposition home or self-care (01) ==
LOC: ED 08:31
DX: S32.049A Unspecified fracture of fourth lumbar vertebra, initial encounter for closed fracture (principal); E11.9 Type 2 diabetes mellitus without complications; I25.2 Old myocardial infarction; Z88.0 Allergy status to penicillin; Z88.1 Allergy status to other antibiotic agents; Z88.5 Allergy status to narcotic agent; Z79.899 Other long term (current) drug therapy; Z79.4 Long term (current) use of insulin; Z79.84 Long term (current) use of oral hypoglycemic drugs; W18.2XXA Fall in (into) shower or empty bathtub, initial encounter
CPT/HCPCS: 36415; 72131; 80048; 85025; 93005; 93010; 96374; 97162; 99284-25; J1885

== ENCOUNTER 2022-01-25 13:33 | Inpatient (IN) | payer MEDICARE, OTHER ==
[~2022-01-25] VITALS: Ht 185.4 cm; Wt 84.0 kg
[~2022-01-25 13:33] MED LIST changes: +NEURONTIN300 MG PO
[2022-01-25] MEDS ORDERED: FLOMAX0.4 MG PO (13:55)
[2022-01-25] MEDS ORDERED: ATORVASTATIN CA80 MG PO (17:53)
[2022-01-25] MEDS ORDERED: METFORMIN HCL500 MG PO (17:55)
[2022-01-25] MEDS ORDERED: METOPROLOL SUC200 MG PO (17:55)
[2022-01-25] MEDS ORDERED: DULOXETINE HCL60 MG PO (17:56)
[2022-01-25] MEDS ORDERED: SPIRONOLACTONE25 MG PO (17:57)
[2022-01-25] MEDS ORDERED: JARDIANCE10 MG PO (17:57)
--- NOTE | 2022-01-25 17:57 | NUR ---
REPORT FROM BELIA SMALLS, IN ER.
[2022-01-25] MEDS ORDERED: DIGOXIN125 MCG PO (17:58)
[2022-01-25] MEDS ORDERED: INSULIN AS100 UNIT/3 SUB-Q (18:02)
--- NOTE | 2022-01-25 18:49 | NUR ---
PATIENT ADMITTED TO MED SURG. PATIENT WAS ABLE TO PARTIALLY SCOOT HIMSELF OVER TO BED FROM [facility]. PATIENT RATES LOWER BACK PAIN 3/10 AND LIDOCAINE PATCH APPLIED TO THAT AREA. NS@75 INFUSING TO RIGHT A/C #20 FIELD START. PATIENT DOES HAVE GLUCOMETER PATCH TO RIGHT OUTER ARM. PATIENT HAS EXCORIATION TO LIDIA AREA, TESTICLES, AND GLUTEAL CLEFT. BARRIER CREAM APPLIED TO THESE AREAS. FRAGOSO CATHETER INTACT WITH RED URINE, DR. HDZ IS AWARE. FRAGOSO STABILIZATION DEVICE APPLIED. PATIENT IS SIPPING DIET SODA. NO OTHER NEEDS NOTED AT THIS TIME.
--- NOTE | 2022-01-25 19:30 | NUR ---
SHIFT REPORT RECEIVED FROM TAJ ARGUETA AT BEDSIDE. pt RESTING QUIETLY IN BED, BED ALARM ON FOR SAFETY. IV SITE WNL, FLUIDS INFUSING DIRECTED. FRAGOSO CATHETER PATENT, OUTPUT COLOR RED SIMILAR TO LOWE DALIOLAID IN CATHETER TUBING - NO CLOTS NOTED. PER SHIFT REPORT, DR HDZ ALREADY AWARE. WILL CONTINUE TO MONITOR. CALL LIGHT IN REACH.
--- NOTE | 2022-01-25 20:50 | NUR ---
IN TO ASSIST RN WITH LAB DRAW AND NEW GOWN IN PLACE, NO FURTHER NEEDS AT THIS TIME
--- NOTE | 2022-01-25 21:00 | NUR ---
ASSESSMENT COMPLETE, SCHEDULED MEDS GIVEN WHOLE IN APPLESAUCE. NO ISSUES SWALLOWING NOTED. pt A/O TO SELF, PLACE, DATE/TIME. BED ALARM ON TO ENSURE SAFETY AND pt IS IN VIEW OF RN STATION. IV SITE WNL, FLUIDS INFUSING DIRECTED. VSS, TELE#[address] IN [address]- AFIB, HR WNL. EXCORIATIONS TO BUTTOCKS, REDDENED LIDIA AREA AND GROIN FOLDS-BARRIER CREAM ALREADY IN PLACE. BACK BRACE OFF AT pt's ARRIVAL TO FLOOR PER SHIFT REPORT-PER MD OKAY TO LEAVE OFF AT THIS TIME. RICHMOND WANG PATENT W/ NO CLOTS, BUT RED IN COLOR-MD UPDATED AND ALREADY AWARE. PER MD, FLUSH PRN TO PREVENT CLOTS. SET UP OPERATOR TOOL IN ROOM TO PLACE NEW IV AND COLLECT MAG ORDER.
--- NOTE | 2022-01-25 21:15 | NUR ---
VITALS DONE, FRAGOSO EMPTIED
--- NOTE | 2022-01-25 21:47 | NUR ---
NEW IV STARTED, BLLOD DRAWN AND SNET TO LAB. PATIENT TOLERATED ACTIVITY WELL. MEDS PER ORDER. PATIENT PROVIDED SIPS OF WATER. PATIENT DENIES ANY FURTHER NEEDS. CALL LIGHT IN REACH.
--- NOTE | 2022-01-25 22:48 | NUR ---
ROUNDED ON pt, pt BOOSTED IN BED. RESTING COMFORTABLY, DENIES NEEDS OR CONCERNS. FRAGOSO REMAISN PATENT WITH SECUREMENT DEVICE IN PLACE, FRAGOSO FLUSHED WITH 10MLS NS- NO CLOTS NOTED. WILL CONTINUE TO MONITOR. CALL LIGHT INR EACH AND EBD ALARM ON FOR SAFETY.
--- NOTE | 2022-01-26 00:50 | NUR ---
this rn received call from [facility] staff of continued abnormal tele reading. pt denies sob, chest pain, or other s/sx. resting comfortably in bed and visiting with this rn. vss, tele#[address] lira patent, red in output w/ no clots-325 mls noted. urine color assessed by both charge authorizer martha and tank house operator helper shmia. bed alarm on for safety, pt changed positions and now resting on his back-bed alarm on and call light in reach. will continue to monitor.
--- NOTE | 2022-01-26 02:42 | NUR ---
bed alarm going off, this rn in room to assess. pt wishing to turn on his right side, boost provided with help from charger tester martha mcclure pt now resting on his right side. tele#[address], afib noted with hr 80's to 90's. iv sites x2 wnl, fluids infusing as directed. bed alarm resumed and call light in reach. pankaj parsons patent, no clots noted. will continue to monitor.
--- NOTE | 2022-01-26 05:00 | NUR ---
pt resting in bed, on ra. rr even and unlabored, no distress noted. sonny#[address] and iv fluids infusing wnl. call light in reach. bed alarm on.
--- NOTE | 2022-01-26 06:01 | NUR ---
DR HDZ UPDATED ON VS AND TRENDING HR THROUGHOUT THE SHIFT. HR HAS BEEN IN 70'S-80'S AND IS NOW TRENDING IN 90'S TO ONE TEENS AND OCCAS IN 120'S THOUGH NONSUSTAINING. TELE REMAINS IRREGULAR- IN AFIB W/ RUNS OF VTACH PER CCU BELIA QUINONES. DISCUSSED FRAGOSO OUTPUT FOR SHIFT AND COLOR, CURRENTLY PRECISION HONER IN COLOR WITH NO CLOTS. PER MED REC pt ON DIGOXIN, CURRENTLY NOT ORDERED. DISCUSSED ALL INFORMATION WITH DR HDZ, NO NEW ORDERS RECEIVED AT THIS TIME.
--- NOTE | 2022-01-26 06:27 | EKG ---
[facility] [address] [place] [address] Signed Atrial fibrillation Minimal voltage criteria for LVH, may be normal variant ( [place] product ) Inferior infarct , age undetermined Abnormal ECG When compared with ECG of 24-JAN-2022 08:52, Atrial fibrillation has replaced Junctional rhythm QT has shortened Confirmed by MIRIAM HDZ MD ([id number]) on 01/26/2022 6:26:52 AM Electronically Signed By: MIRIAM HDZ MD 01/26/22 0627 PATIENT NAME: CAROLYN GREER CARLITOS Electrocardiogram DATE OF : 35 PHYSICIAN: MIRIAM HDZ MD REPORT #: [id number] REPORT IS CONFIDENTIAL AND NOT TO BE RELEASED WITHOUT AUTHORIZATION
--- NOTE | 2022-01-26 07:15 | NUR ---
PT PULLING ATR TELE LEADS, IN TO FIX, BED ALARM SET
--- NOTE | 2022-01-26 07:25 | NUR ---
PT PULLED TELE LEADS AND GOWN OFF, FIXED, BED ALARM REMAINS ON
--- NOTE | 2022-01-26 09:16 | NUR ---
MORNING ASSESSMENT COMPLETE. PT SITTING UP IN CHAIR EATING BREAKFAST. C/P 5/10 BACK PAIN, LIDOCAINE PATCH APPLIED, WILL REASSESS FOR PRN MEDICATIONS. PT AWARE OF SELF, TIME, CONFUSED ON PLACE AND SITUATION. DENIES FURTHER NEEDS AT THIS TIME. CHAIR ALARM IN PLACE. CALL LIGHT WITHIN REACH.
--- NOTE | 2022-01-26 09:49 | NUR ---
pt c/o 5/10 back pain, prn toradol given.
--- NOTE | 2022-01-26 10:47 | NUR ---
PT RESTING IN BED WITH EYES CLOSED, RESPIRATIONS EVEN AND UNLABORED. CALL LIGHT WITHIN REACH. BED ALARM ON.
[2022-01-26] MEDS ORDERED: ASPIRIN81 MG PO (11:53)
[2022-01-26] MEDS ORDERED: NOVOLOG FL100 UNIT/1 SUB-Q (11:56)
--- NOTE | 2022-01-26 12:27 | NUR ---
pt sitting up in chair eating lunch. at bedside. Denies needs at this time. Call light within reach. Chair alarm on.
--- NOTE | 2022-01-26 17:13 | NUR ---
PT SITTING UP IN CHAIR EATING DINNER. DENIES NEEDS AT THIS TIME. CALL LIGHT IN REACH.
--- NOTE | 2022-01-26 18:07 | NUR ---
PT LYING IN BED WITH EYES CLOSED, RESPIRATIONS EVEN AND UNLABORED, AWAKENS EASILY. BED ALARM ON AND CALL LIGHT IN REACH.
--- NOTE | 2022-01-26 20:25 | NUR ---
bed alrm going off, pt restless in bed and figeting with lira. stat lock off at this time. angela ryderine in room to place new stat lock. lira remains patent, pt educated on lira. pt boosted in bed and bed alarm resumed. call light in reach with iv site wnl, fluids infusing wnl. will continue to monitor.
--- NOTE | 2022-01-26 20:30 | NUR ---
in to check on pt, pt needs a new f/c stablitizion sticker, in place, pt asking many questions of poc, questions of lira, comptelted lira care, vs done, boosted in bed, bed alarm is set, no further needs at this time
--- NOTE | 2022-01-26 21:12 | NUR ---
FULLL BODY ASSESMENT DONE. HS MEDICATION ADMINISTERED. PATIENT REPORTS PAIN 5/10 WITH PAIN FROM BACK, PATIENT GRIMACING. ADMINISTERED TORADOL IV PER MAR. PATIENT ALSO REPORTED FEELING RESTLESS, ADMINISTERED MELATONIN PO PER MAR. CALL LIGHT WITHIN REACH, PATIENTS CALL LIGHT WITHIN REACH. NO OTHER NEEDS AT THIS TIME.
--- NOTE | 2022-01-26 23:21 | NUR ---
PATIENT CALLED AND REPORTED FEELINGS OF NEEDING TO URINATE. MANIPULATED TUBING AND DEFLATED CATH BALLOON AND THEN REINFLATED WITH 10 ML OF NORMAL SALINE. PATIENT CONTINUED TO HAVE TENDERNESS AT ABDOMEN WITH PALPATION AND PATIENT STATED " I NEED A URINAL NOW". BLADDER SCAN PATIENT BLADDER >500 ML, IRRIGATED FRAGOSO WITH <40 ML OF STERIL SALINE, PULLED BACK ON PLUNGER AND NOTED DARK BROWISH URINE, HOOKED BACK TO GRAVITY BACK. DRAINED 600 ML OF URINE. PATIENT REPORTED IMMEDIATE RELIEF AND BACK TO SLEEP. CALL LIGHT WITHIN REACH AND BED ALARM ON.
--- NOTE | 2022-01-26 23:58 | NUR ---
DR HDZ AT RN STATION, MADE AWARE OF SMALL CLOT NOTED TO pt's FRAGOSO AND AFTER FRAGOSO FLUSH, PRIMARY RN RETRIEVED 600MLS (SEE ORIGINAL NOTE FROM PRIMARY RN INESSA). NO NEW ORDERS RECEIVED, WILL CONITNUE TO MONITOR. PRIMARY BELIA WYLIE AWARE.
--- NOTE | 2022-01-27 00:50 | NUR ---
PATIENT APPEARS RESTLESS, HANGING LEGS OFF OF BED. REPOSITIONED WITH PILLOWS AND PROVIDED HEAT PAD. PATIENT APPEARED TO REST EASY FOR SHORT TIME WITH EYES CLOSED. PATIENT THEN CALLED AND STATED "I NEED TO STAND UP AND WALK AROUND RIGHT NOW" SAT PATIENT AT BEDSIDE THEN STOOD AND PIVOTED TO RECLINER. PATIENT VERBALIZED PAIN WITH ACTIVITY AND REPORTED SOME RELIEF ONCE SITTING IN RECLINER. REPOSITIONED WITH PILLOWS, CHAIR ALARM ON, WHEELS LOCKED. CALL LIGHT WITHIN REACH. PATIENT THEN COMPLAINED OF BLADDER FEELING FULL, IRRIGATED WITH 20 ML OF STERILE SALINE. FRAGOSO APPEARS TO BE FLOWING WELL. PATIENT NOW RESTING BACK IN RECLINER WITH EYES CLOSED. NO OTHER NEEDS AT THIS TIME.
--- NOTE | 2022-01-27 03:40 | NUR ---
PATIENT RESTING BACK IN BED, APPEARS TO BE SNORING, LEGS RELAXED LYING SUPINE IN BED. BED ALARM ON, CALL LIGHT WITHIN REACH.
--- NOTE | 2022-01-27 05:37 | NUR ---
urine appears systems programmer this morning in lira tube, tanish with small clot particles present. lab into room collect blood. Patient tolerated well, back to sleep. Provided warm blanket. Patient awakes when verbalized no pain at this time.
--- NOTE | 2022-01-27 05:38 | NUR ---
PATIENT WAS RESTLESS AT BEGINNING OF SHIFT, ADMINSTERED PRN MELATONIN AND IV TORADOL FOR PAIN/ SLEEP. PATIENT HAD COMPLAINED OF BLADDER FEELING FULL WITH FRAGOSO IN PLACE. BLADDER SCAN REVEALED >500 ML, WITH IRRIGATION FRAGOSO NOW DRAINING WELL AND FELLING OF FULLNESS RESOLVED. PATIENT THEN APPEARED TO BE HAVE TREMOR LIKE MOVEMENTS IN BED, AND APPEARED TO BE UNABLE TO GET COMFORTABLE WITH LOWER BACK PAIN. PATIENT UP TO RECLINER, TRANSFERED 1 PERSON PIVOT, TOLERATED ACTIVITY FAIR. THEN AFTER A FEW HOURS PATIENT BACK TO BED AND RESTED WELL THE REST OF THE NIGHT. THIS MORNING BLOOD WAS COLLECTED BY LAB.
--- NOTE | 2022-01-27 09:49 | NUR ---
MORNING ASSESSMENT COMPLETE. PT ORIENTED TO SELF, TIME AND PLACE, UNAWARE OF SITUATION. DENIES PAIN AT THIS TIME. CHAIR ALARM IN PLACE, CALL LIGHT WITHIN REACH.
--- NOTE | 2022-01-27 10:18 | NUR ---
PT HAVING DIFFICULTY STANDING WITH PT, IV TORADOL AND PO TYLENOL GIVEN. CATETHER IRRIGATED, CLOTS NOTED. IMMEDIATE 400MLS CLEAR YELLOW OUT.
--- NOTE | 2022-01-27 10:35 | NUR ---
INTO PATIENT ROOM. PATIENT GRANDSON/POA LYDIA, PATIENT DAUGHTER AND HIS URIEL AT THE BEDSIDE. DISCUSSED WITH FAMILY THAT THE PATIENT MAY NOT MEET INPATIENT STATUS FOR 3 MIDNIGHT STAY. DISCUSSED THAT THE PATIENT IS ABLE TO STAY IN THE HOSPITAL, BUT THEY MAY RECEIVE A BILL FROM MEDICARE. DISCUSSED THAT IF PATIENT IS NOT ABLE TO RETURN HOME THAT CASE MANAGEMENT CAN ATTEMPT TO FIND A FACILITY THAT WOULD ACCEPT THE PATIENT, BUT MEDICARE WILL NOT PAY FOR THE PATIENT ADMISSION WITH OUT A 3 MIDNIGHT STAY. AND DAUGHTER ADMIT THAT PATIENT CANNOT RETURN HOME. DR. HDZ REQUESTED TO DISCUSS FURTHER DISCHARGE PLANNING. PER PATIENT GRANDSON/POA THE FAMILY WOULD LIKE TO PROCEED WITH PLACEMENT AND THE FAMILY WOULD PREFER TO START WITH THE FACILITIES IN [place]. WILL CASE TO CHECK BED AVAILABILITY.
--- NOTE | 2022-01-27 11:24 | NUR ---
PT RESTIN GIN CHAIR WITH EYES CLOSED, RESPIRATIONS EVEN AND UNLABORED. PT AWAKENS EASILY. CHAIR ALARM IN PLACE. CALL LIGHT WITHIN REACH. FAMILY AT BEDSIDE.
--- NOTE | 2022-01-27 11:30 | NUR ---
SPOKE WITH [facility] AT [facility] IN [place], NO BED AVAILABILITY AT THIS TIME.
--- NOTE | 2022-01-27 12:10 | NUR ---
LEFT MESSAGE FOR ADMISSIONS FOR ELISABETH RESENDEZ AND GREG LIZAMA FOR BED AVAILABILITY.
--- NOTE | 2022-01-27 13:13 | NUR ---
PT RESTING IN CHAIR, RESPIRATIONS EVEN AND UNLABORED. FRAGOSO FLUSHED, IMMEDIATE 300MLS DRAINED. AT BEDSIDE, CALL LIGHT IN REACH AND CHAIR ALARM ON.
--- NOTE | 2022-01-27 16:53 | NUR ---
PT SITTING AWAKE IN BED, VISITING WITH FAMILY. DENIES NEEDS AT THIS TIME. CALL LIGHT WITHIN REACH. BED ALARM ON.
--- NOTE | 2022-01-27 18:16 | NUR ---
PT RESTING QUIETLY IN BED WIH EYES CLOSED, AWAKENS EASILY. VS TAKEN. FRAGOSO FLUSHED AND EMPTIED. PT DENIES NEEDS AT THIS TIME. CALL LIGHT IN REACH. BED ALARM ON.
--- NOTE | 2022-01-27 19:36 | NUR ---
Pt on room air, resting, eyes closed, no distress, fluids and call light at hands reach
--- NOTE | 2022-01-27 20:04 | NUR ---
pt awake now, cooperative with assessment, tele#[address] irregular, afib rhythm, denies CP or SOB. unable to do CDB, lungs clear dim at bases, no cough noed at this time. dry skin. SL RAC field start and IVF on RFA infusing w/o problems, f/c not chronic draining barros colored urine. flushed with 50cc NS a few thin blood clots flushed out. urine pinkish red now. tolerated very well, procedure explained. took sips of fluids, helped with turning, required several cues. involuntary hand tremors noted, took gown off, back on, warm blanket given on requests. heel protectors off, 1+ edema, elevated. Bed alarm on.
--- NOTE | 2022-01-27 20:45 | NUR ---
COOP WITH ASSESSMENT, CBG 276 RECEIVED SS 7 UNIT. TURNED AND REPOSITIONED TO R SIDE HIS REQUESTS, COOPERATIVE, MEDICATED WITH TYLENOL PER BACK PAIN. IVF INFUSING W/O PROBLEMS, TELE#[address] AFIB WITH SHELLY CHAU MD AWARE, NO NEW ORDERS
--- NOTE | 2022-01-28 00:09 | NUR ---
tele dc'd earlier as per orders, pt resting, eyes closed, no distress, IVF infusing w/o problems. f/c patent, draining cranberry looking urine, flusehed again with 50cc few blood clots removed w flushing, pink reddish urine now. cooperative awake, tolerating liquids well, finished an ensure schroeder drink. watching tv, fall an daspiration precautions in place.
--- NOTE | 2022-01-28 02:13 | NUR ---
awake, watching tv, pleasant and coop. ivf infusing. fluids and call light at hands reach
--- NOTE | 2022-01-28 04:59 | NUR ---
Pt on room air, was slept off and on. cont to c/o back discomofrt, medicated with Tylenol with good pain relief. IVf infusing w/o problems. plus SL patent. f/c not chronic patent, draining barros colored urine, with some clots, has been flushed with NS. cooperative, forgetful, follows instructions tolerataing liquids well, uses call light, MOM given per unknown date of LBM, and soft, RAIMUNDO, no results.
--- NOTE | 2022-01-28 05:23 | NUR ---
pt medicated with Toradol, per back pain 10/06. turned and repositioned, helped. IVF infusing w/o problems, clear speech, slow but follows instructions. aware of place but not date. tolerating liquids well, uses call light.
--- NOTE | 2022-01-28 06:31 | NUR ---
PT CALL LIGHT ON, REQUESTED SOME ASSISTANCE WITH TURNING OVER
--- NOTE | 2022-01-28 07:32 | NUR ---
Bedside report received from MARY RN. Pt is lying in bed. We are to transfer Pt to chair for breakfast. Bed alarm on.
--- NOTE | 2022-01-28 12:16 | NUR ---
BG was 268 before lunch. Pt ate 100% of his lunch. He remains in recliner with feet elevated. pointed out Ensure clear that Pt was getting has too much sugar. Dietary called and asked for diabetic ensure clear, but they do not carry it. Urine is noted to be clearing up. No blood clots noted. Pt's at the bedside. TLSO brace on. Pt denies pain.
--- NOTE | 2022-01-28 21:05 | NUR ---
pt awake, alert to self and situation but not place date or time. pleasnt, cooperative, helpw with repositioning, tolerated much better and helped more than yesterday when repositioning and turning, mild low back pain medicated with Tylenol 500mg po. cbg 233 received 5 units ss insulin. tolerating liquids well. On room air, lungs dim at bases, denies nor noted sob with exertion. no cough. Irregular heart rhythm. abd soft hoba had a large bm at change of shift. f/c not chronic draining dark bjorn colored urine w a ew blood clots. flushed with 1 small blood clot noted w flow return, procedure explained, coop. edema to LE, elevated.
--- NOTE | 2022-01-28 22:06 | NUR ---
AWAKES EASILY, ON ROOM AIR, NO C/O BACK PAIN. REPOSITIONED IN BED, F/C PATENT DRAINING DARK LOR COLORED URINE.
--- NOTE | 2022-01-29 00:05 | NUR ---
watching tv, no c/o, repositioned self, f/c draining dark bjorn colored urine. patent. call light and fluids at hands reach
--- NOTE | 2022-01-29 01:55 | NUR ---
RESTING, EYS CLOSED, REPOSITIONED SELF IN BED. CALL LIGH AND FLUIDS AT BEDSIDE, F/C PATENT, DRAINING DARK LOR COLORED URINE. LE ELEVATED
--- NOTE | 2022-01-29 03:11 | NUR ---
PT AWAKES EASILY, ON ROOM AIR, NO C/O PAIN. TOLERATING LIQUIDS WELL. NO EMESIS. F/C URINE COLORING IMPROVING. CALL LIGHT AND FLUIDS AT HANDS RECH, HELFUL WITH TURNING AND REPOSITINING. LEGS ELEVATED.
--- NOTE | 2022-01-29 05:26 | NUR ---
Pt on room air, has slept off and on, comfortable, was medicated x1 per c/o back pain, eddective, helping with turning and repositioning. tolerating fluids well. sl patent. had a bm between shifts yeterday. f/c coloring at begining of shift was dark bjorn colored. now still kust bjorn colored a couple thin blood clots noted. pt alert to selg, much improving. Bed alarm on Pt is to be up for meals ant o wear back brace when oob
--- NOTE | 2022-01-29 06:48 | NUR ---
Pt awake, watching tv, no c/o back pain at this time, tolerating sips of fluids well, no emesis. f/c draining medium bjorn colored urine. call light and fluids at bedside
--- NOTE | 2022-01-29 09:05 | NUR ---
MORNING ASSESSMENT COMPLETE. PT LYING IN BED WITH EYES CLOSED, EASILY AWAKENS, LIDOCAINE PATCH PALCED AND MEDICATIONS GIVEN. PT DOES NOT RATE PAIN AT THIS TIME THOUGH STATES TOLERABLE WITH REST. PT ORIENTED TO SELD, PLACE AND TIME. CONFUSED ON SITUATION. PT DENIES FURTHER NEEDS AT THIS TIME. CALL LIGHT WITHIN REACH. BED ALARM ON.
--- NOTE | 2022-01-29 10:18 | NUR ---
THIS MORNING BROUGHT HIM A CUP OF COFFEE AND NEW GLASS OF ICE WATER.
--- NOTE | 2022-01-29 10:19 | NUR ---
PATIENT IS WORKING WITH PHYSICAL THERAPY, PATIENT UP TO CHAIR WITH 1-2 PA AND FWW. BED LINENS CHANGED.
--- NOTE | 2022-01-29 11:17 | NUR ---
PT SITTING UP IN CHIAR, HAD C/O BACK PAIN, UNABLE TO RATE. PRN TYLENOL GIVEN. PT DENIES FURTHER NEEDS AT THIS TIME. CALL LIGHT WITHIN REACH. CHAIR ALARM ON AND AT BEDSIDE.
--- NOTE | 2022-01-29 12:31 | NUR ---
pt sitting up in recliner, at bedside, denies needs at this time. call light within reach. chair alarm on .
--- NOTE | 2022-01-29 15:49 | NUR ---
PT LYING AWAKE IN BED, AT BEDSIDE. PT DENIES PAIN OR FURTHER NEEDS AT THIS TIME. CALL LIGHT IN REACH. BED ALARM ON.
--- NOTE | 2022-01-29 17:14 | NUR ---
PT RESTING QUIETLY WITH EYES CLOSED, RESPIRATIONS EVEN AND UNLABORED. CALL LIGHT IN REACH, BED ALARM ON.
--- NOTE | 2022-01-29 19:33 | NUR ---
REPORT RECEIVED FROM DAY SHIFT RN. PT SITTING UP IN BED EATING DINNER. DENIES NEEDS AT THIS TIME. WHITE BOARD UPDATED. CALL LIGHT IN REACH.
--- NOTE | 2022-01-29 21:00 | NUR ---
ASSISTED PRIMARY RN ANGÉLICA. PATIENT GOT UP TO THE BATHROOM. BACK BRACE ON. PATIENT USED WALKER. PATIENT HAD LARGE FORMED BM. PATIENT IS BACK IN BED. V/S AND I&O'S TAKEN AND CHARTED BY PRIMARY RN. WARM BLANKET PROVIDED.
--- NOTE | 2022-01-29 21:30 | NUR ---
CALL LIGHT ANSWERED. 2PA WITH FWW AND BACK BRACE TO BR FOR LARGE FORMED BM. STAFF ASSIST WITH LIDIA CARE. GAIT WEAK. BACK TO BED, JASON WELL. STAFF ASSIST TO LIFT LEGS INTO BED. EVENING ASSESSMENT COMPLETE. SCHEDULED MEDS ADMIN PER EMAR. PRN FOR PAIN ADMIN FOR C/O BACK PAIN. BARRIER CREAM APPLIED TO DISCOLORATION IN GROIN AREA. URINE CLEAR, NO RED OR CLOTS NOTED. 2PA TO REPOSITION IN BED. NO FURTHER NEEDS. CALL LIGHT IN REACH. BED ALARM FOR SAFETY.
--- NOTE | 2022-01-29 22:36 | NUR ---
CALL LIGHT ANSWERED. 2PA TO REPOSITION IN BED. URINAL EMPTIED OF 150 ML CLEAR YELLOW URINE. BLOOD SUGAR CHECK 269. SLIDING SCALE INSULIN GIVEN. PT DENIES FURTHER NEEDS. CALL LIGHT IN REACH. BED ALARM FOR SAFETY.
--- NOTE | 2022-01-29 23:37 | NUR ---
PT WAVING THIS RN IN TO ROOM. ASSISTED TO REPOSITION IN BED. FRESH ICE WATER PROVIDED. LIGHTS OUT PER REQUEST. CALL LIGHT IN REACH. BED ALARM ON.
--- NOTE | 2022-01-30 00:42 | NUR ---
BED ALARM SOUNDING. PT TRYING TO REPOSITION IN BED. ASSISTED TO RIGHT SIDE WITH PILLOWS. URINAL EMPTIED OF 200 ML YELLOW URINE. NO FURTHER NEEDS. BED ALARM ON.
--- NOTE | 2022-01-30 02:12 | NUR ---
URINAL EMPTIED. PATIENT PROVIDED WARM BLANKET. NO FURTHER NEEDS NOTED. CALL LIGHT IN REACH. BED ALARM ON FOR SAFETY.
--- NOTE | 2022-01-30 04:07 | NUR ---
PT RESTING IN BED WITH EYES CLOSED. RESPIRATIONS EVEN. CALL LIGHT IN REACH. BED ALARM FOR SAFETY.
--- NOTE | 2022-01-30 05:27 | NUR ---
BED ALARM SOUNDING. PT NEEDING TO STAND AT BEDSIDE TO VOID. 1PA TO STAND AND USE URINAL. PT INCONTINENT OF URINE WELL. LINENS AND GOWN CHANGED. LIDIA CARE DONE. BACK TO BED, JASON WELL. REPORTS BACK PAIN WITH ACTIVITY. PRN FOR PAIN ADMIN PER EMAR. PT POSITIONED TO LEFT SIDE. VS AND I&O COMPLETE. BED ALARM FOR SAFETY. CALL LIGHT WITHIN REACH.
--- NOTE | 2022-01-30 07:48 | NUR ---
REPORT RECIEVED FROM BELIA LINDSAY. PT RESTING IN BED AND ASKED SOME QUESTIONS. STATES HE FEELS OK BUT WILL REST SOME MORE BEFORE GETTING UP FOR BREAKFAST.
--- NOTE | 2022-01-30 08:54 | NUR ---
PT WAS TOO TIRED TO WAKE FOR BREAKFAST. WOULD RESPOND TO QUESTIONS W/EYES CLOSED REFUSED TO WAKE FULLY. PLACED BEDISDE TABLE W/TRAY CLOSE. CALL LIGHT IN REACH.
--- NOTE | 2022-01-30 09:01 | NUR ---
PT GETTING UP IN CHAIR WITH BRACE ON WITH FOOD STAND MANAGER. PT RATES PAIN 9/10 AFTER MOVING. STATES HE DID NOT SLEEP AT ALL LAST NIGHT BUT FOOD STAND MANAGER WOKE HIM UP. WALKED WELL TO CHAIR. MEDS ADMINISTERED INCLUDING ONE UNIT INSULIN.
--- NOTE | 2022-01-30 09:24 | NUR ---
PATIENT GIVEN ONE TYLENOL FOR 9/10 LOW BACK PAIN AFTER PHYSICAL THERAPY.
--- NOTE | 2022-01-30 09:39 | NUR ---
ASSISTED PT BACK TO BED PER HIS REQUEST. PT JUST HAD TYLENOL. IN ROOM. MOVES WELL, THOUGH PAINFUL.
--- NOTE | 2022-01-30 12:17 | NUR ---
PT CONTINUES TO REST IN BED WITH EYES CLOSED. CONCERNED HE WONT BE EATING LUNCH WHILE IT IS HOT. EXPLAINED WE CAN HEAT IT UP OR ORDER ANOTHER WHEN HE WAKES UP. SHE STATES SHE THINKS HE HAS HIS NIGHT AND DAYS MIXED UP HE HASN'T BEEN SLEEPING AT NIGHT AT HOME EITHER.
--- NOTE | 2022-01-30 13:24 | NUR ---
PT GIVEN TYLENOL FOR PAIN 03/08. INSULIN SS. PT DID NOT EAT MUCH OF LUNCH BUT ATE THE CARBS.
--- NOTE | 2022-01-30 14:41 | NUR ---
PT HAD A BM IN THE BED. RN/CNA2 ASSISTED PT IN STANDING W/ FWW AFTER CHANGING HIS GOWN AND REAPPLYING HIS BACK BRACE. PT STOOD W/RN ASSISTANCE WHILE THIS CNA2 PERFORMED LIDIA CARE AND TRANSFERRED TO CHAIR. RN/CNA2 CHANGED LINEND ON BED. PT VITALS WERE TAKEN AND DOCUMENTED W/I & O'S. PT LEFT FOR THE EVENING. PT IS RESTING IN CHAIR. CALL LIGHT IS IN REACH.
--- NOTE | 2022-01-30 14:58 | NUR ---
PT REMAINS UP IN CHAIR. DOSING OFF AND ON. CALL LIGHT ON LAP.
--- NOTE | 2022-01-30 17:13 | NUR ---
PT SITTING UP IN CHAIR USING URINAL AND EATING DINNER. PT RATES PAIN 6-7, SEEMS MORE COMFORTABLE, RELAXED THAN EARLIER TODAY. MEDS ADMINISTERED PER ORDERS.
--- NOTE | 2022-01-30 19:35 | NUR ---
REPORT RECEIVED FROM DAY SHIFT RN. PT LYING IN BED AWAKE AND ALERT. REPORTS HE IS COMFORTABLE. URINAL EMPTIED. NO NEEDS. WHITE BOARD UPDATED. BED ALARM FOR SAFETY. CALL LIGHT IN REACH.
--- NOTE | 2022-01-30 19:53 | NUR ---
BED ALARM SOUNDING. PT TRYING TO GET UP TO USE URINAL. TO SIDE OF BED TO VOID 150 ML YELLOW URINE. INCONTINE OF URINE AND BM ALSO. STAFF ASSIST WITH LIDIA CARE. BACK TO BED. 2PA TO REPOSITION. GOWN CHANGED. BED ALARM ON. CALL LIGHT IN REACH.
--- NOTE | 2022-01-30 21:15 | NUR ---
EVENING ASSESSMENT COMPLETE. SCHEDULED MEDS ADMIN PER EMAR. PRN ADMIN FOR C/O MID BACK PAIN. HOB ELEAVTED. NO SWALLOWING ISSUES NOTED. STAFF ASSIST PT TO USE URINAL. 2PA TO REPOSITION IN BED. PT DENIES FURTHER NEEDS. BED ALARM FOR SAFETY. CALL LIGHT IN REACH.
--- NOTE | 2022-01-31 02:16 | NUR ---
PT RESTING IN BED WITH EYES CLOSED. RESPIRATIONS EVEN. CALL LIGHT IN REACH. BED ALARM FOR SAFETY.
--- NOTE | 2022-01-31 04:03 | NUR ---
PT RESTLESS IN BED. IN ROOM TO ASSIST PT TO USE URINAL. GOWN AND BLANKETS REPLACED. 2PA TO REPOSITION IN BED. PT DENIES PAIN AT THIS TIME. CALL LIGHT IN REACH. BED ALARM FOR SAFETY.
--- NOTE | 2022-01-31 06:14 | NUR ---
VS AND I&O COMPLETE. SCHEDULED MEDS ADMIN PER EMAR. PT REQUESTING TO REST LONGER. WARM BLANKET PROVIDED. CALL LIGHT IN REACH. BED ALARM IN PLACE.
--- NOTE | 2022-01-31 06:55 | NUR ---
PATIENT CALLED FOR TO USE THE URINAL. NEW URINAL GIVEN DUE TO CANT FIND THE OLD ONE. NOTICED THE BED WAS WET. FOUND THE OLD URINAL IN THE BED BETWEEN HIS LEGS. CHANGED THE WHOLE BED LINEN AND GOWN.
--- NOTE | 2022-01-31 07:46 | NUR ---
Report received from Tracy CELAYA. Pt resting in bed with eyes closed, even and unlabored respirations, no needs identified at this time. Call light in reach, bed alarm on, will continue plan of care.
--- NOTE | 2022-01-31 09:00 | NUR ---
Scheduled medications administered and assessment complete. Pt resting in bed at this time, on RA. Pt forgetful at times, unable to fully state birthday at this time. States no needs, lidocaine patch applied to lower back, pt denies pain. Occupational therapy in room to work with patient.
--- NOTE | 2022-01-31 09:28 | NUR ---
Spoke with Candelaria from [facility]. No beds available. Pt agrees to placement whereever there is a bed available. 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.
--- NOTE | 2022-01-31 10:16 | NUR ---
Pt assisted to use BSC for large soft stool, family in room, discussed plan of care, attempted to answer all questions, CM notified of pt needs and family questions.
--- NOTE | 2022-01-31 11:31 | NUR ---
Spoke with pt, , and grandson, Allan LEVINE. UPdated we have called the three SNFs in [place]. [facility] does not have beds open. I am awaiting calls from the REgency at the [facility]. Family now state another family member called [facility] in [place], [place]. They now would like to go there. Let them know I will call and check for availability.
--- NOTE | 2022-01-31 11:50 | NUR ---
Called and spoke with Cecelia at [facility] [phone] fax [phone]. She states they will have a bed open on and request we send a packet for review. Chart printed: face sheet, H&P, progress notes, covid test, med list, covid vaccine cards and faxed to Cecelia. Spoke with Karla and updated, this hospital stay may not be covered through by medicare. Allan states the discussed this with them last week. He states money is not an issue and they will pay out of pocket. Family will also transport this pt to the SNF if he is accepted.
--- NOTE | 2022-01-31 12:04 | NUR ---
PT REQUESTED A SALAD FOR LUNCH. THIS CNA2 ORDERED SALAD ORDERED FROM DIETARY.
--- NOTE | 2022-01-31 13:20 | NUR ---
Rounded on patient who is resting in bed. at bedside. Both state no needs at this time and patient denies pain at rest. Call light in reach.
--- NOTE | 2022-01-31 13:22 | NUR ---
Received call from Cecelia at [facility]. They are declining this pt as they are concerned for fall rist and now have staff with shivani. Chart faxed to [facility] in [place] as grandnima's business is there. and grandson would prefer any [facility] from our earlier conversation. Updated and she has questions of the difference between nursing homes and SNFs. Updated this is what nursing homes now would like to be called. Reviewed the list of SNFs she received earlier and she prefers [facility] in [place]. Called Allan and updated also as Jailene states she has memory issues. Chart faxed to [facility] in [place].
--- NOTE | 2022-01-31 15:03 | NUR ---
PT NEEDED ASSISTANCE UP TO COMMODE W/FWW. FULL BED CHANGE WAS PERFORMED AND LIDIA CARE DONE BEFORE TRANSFERRING BACK TO BED USING THE FWW. PT IS NOW IN BED RESTING. AT BESIDE. CALL LIGHT IN REACH.
--- NOTE | 2022-01-31 17:35 | NUR ---
Pt assessed, resting in bed watching tv, at bedside. Pt states that he has n/t in BLE, more so in L leg, dorsal flexion absent on L side. Utility Tender Carding strength 5/5. Pt turns to when asked questions. When questioned directly he gives appropriate answers. Pt states that he does not want to eat dinner, offered ensure, provided.
--- NOTE | 2022-01-31 19:40 | NUR ---
REPORT RECEIVED FROM DAY SHIFT RN. PT LYING IN BED AWAKE AND WATCHING TV. REPORTS HE IS COMFORTABLE AT THIS TIME. DENIES NEEDS. WHITE BOARD UPDATED. CALL LIGHT IN REACH. BED ALARM FOR SAFETY.
--- NOTE | 2022-01-31 20:34 | NUR ---
EVENING ASSESSMENT COMPLETE. SCHEDULED MEDS ADMIN PER EMAR. PT DENIES PAIN OR NAUSEA. PT USING URINAL. INCONTINENT OF URINE WELL. STAFF ASSIST WITH LIDIA CARE. CLEAN CHUCKS AND GOWN PROVIDED. 2PA TO REPOSITION IN BED. PT DENIES FURTHER NEEDS. CALL LIGHT IN REACH.
--- NOTE | 2022-01-31 21:00 | NUR ---
PT CALLED, REQUESTED AND RECEIVED A WARM BLANKET. LIGHTS AND TV TURNED OFF PER PT CHOICE.
--- NOTE | 2022-02-01 00:41 | NUR ---
CALL LIGHT ANSWERED. PT REQUESTING ASSISTANCE TO REPOSITION. 2PA TO REPOSITION TO LEFT SIDE WITH PILLOWS. BED ALARM IN PLACE. CALL LIGHT IN REACH.
--- NOTE | 2022-02-01 00:41 | NUR ---
PATIENT CALLED NEED HELP TO BE PULLED UP TO BED. PATIENT IS LAYING ON HIS LEFT SIDE. BED ALARM ON FOR SAFETY. NO OTHER NEEDS AT THIS TIME.
--- NOTE | 2022-02-01 02:27 | NUR ---
CALL LIGHT ANSWERED. PT INCONTINENT OF URINE AND NEEDS TO VOID. BACK BRACE ON. PT UP TO BSC WITH 1PA AND FWW TO VOID. LINENS AND GOWN CHANGED. BACK TO BED, JASON FAIR. REPORTS BACK PAIN 03/08. PRN FOR PAIN ADMIN. WARM BLANKETS PROVIDED. NO FURTHER NEEDS. CALL LIGHT IN REACH.
--- NOTE | 2022-02-01 03:02 | NUR ---
PATIENT CALLED FOR URINAL. VOIDED 175ML. PATIENT ALREADY WET THE CHUX, BLANKETS AND GOWN. PLACED FRESH ONES. PULL UP OFFERED AND PUT ON. BED ALARM ON. CALL LIGHT AND SIDE TABLE WITHIN REACH.
--- NOTE | 2022-02-01 06:42 | NUR ---
SCHEDULED MEDS ADMIN PER EMAR. PT DENIES PAIN. VS AND I&O COMPLETE. PT SITTING UP IN BED WATCHING TV. DENIES NEEDS. BED ALARM FOR SAFETY. CALL LIGHT IN REACH.
--- NOTE | 2022-02-01 07:15 | NUR ---
Report received from Tracy CELAYA. Pt resting in bed with eyes closed, even and unlabored respirations on RA. No needs identified at this time. Call light in reach.
--- NOTE | 2022-02-01 09:00 | NUR ---
Attempted to call Bernice at [facility], was able to leave a message. Updated .
--- NOTE | 2022-02-01 09:19 | NUR ---
Scheduled medications administered and assessment complete. Pt is sitting up to chair with back brace in place. at bedside. Pt forgetful to event and surroundings, pt's has many questions and states "I don't know why they think I don't do this at home", pt's unable to clarify what she explicitly means by this statement. Lidocaine patch applied to pt back. Repositioned in chair. VSS, on room air. Fresh coffee provided. No further needs at this time, educated regarding POC and pt current status, both pt and agreeable
--- NOTE | 2022-02-01 10:07 | NUR ---
Received a call from Bernice at [facility]; she has questions about dc plan when pt completes rehab. Gave her grandson, Allan LEVINE's number to call and discuss. Read her the PT notes and dose for Jardiance. She will call me back.
--- NOTE | 2022-02-01 11:38 | NUR ---
Received a call from Bernice at [facility]. They can accept this pt tomorrow. She wants to confirm who will transport. Let her know I will call the Grandson and call her back. Spoke with Allan and he states his Aunt Mallika Rao will transport. Called Bernice and left a message.
--- NOTE | 2022-02-01 13:00 | NUR ---
Received a return call from [facility]. They can accept this pt tomorrow at 1330. Called pts POA and then spoke with pts . Gave a list of belongings pt will need to take with him. again stating she has memory issues. She asks if she just needs to wait here until tomorrow. Let her know she can go home and come back and bring belongings. She also states family feel she should not drive to [facility]. I encouraged her to ride with her grandson as he works in [place] and offered to take her daily if she wants and bring her home at night. When I called grandson, I let him know I left a brochure from [facility] in the room with Bernice Willson's phone number and the address for [facility].
[2022-02-01] MEDS ORDERED: ACETAMINOPHEN500 MG PO (14:14)
[2022-02-01] MEDS ORDERED: METFORMIN HCL500 MG PO (14:16)
[2022-02-01] MEDS ORDERED: LIDOCAINE PAIN1 EACH TD (14:17)
[2022-02-01] MEDS ORDERED: CELECOXIB200 MG PO (14:19)
[2022-02-01] MEDS ORDERED: PANTOPRAZOLE SO40 MG PO (14:19)
--- NOTE | 2022-02-01 14:23 | NUR ---
Rounded on patient who is resting in bed after lunch. Pt has eyes closed, even and unlabored respirations. No needs identified. Call light in reach.
--- NOTE | 2022-02-01 14:30 | NUR ---
Received SN[facility] orders from Dr. Dodd. Faxed orders,dc summary, PASRR, PT/OT note to Bernice.
--- NOTE | 2022-02-01 16:33 | NUR ---
Scheduled medications administered. Pt reports having low back pain, scheduled celebrex given. Pt repositioned, ice pack positioned over low back, hips floated on pillows and under knees. Pt states immediate relief. Fresh coffee provided per request. Call light in reach.
--- NOTE | 2022-02-01 18:43 | NUR ---
Rounded on patient who is resting in bed with eyes closed, even and unlabored respirations, no apparent needs. Call light in reach. Close to nurses station.
--- NOTE | 2022-02-01 19:05 | NUR ---
REPORT RECEIVED FROM BELIA TUBBS. pt RESTING IN BED WITH EYES CLOSED, BREATHING EQUAL AND UNLABORED. CALL LIGHT WITHIN REACH.
--- NOTE | 2022-02-01 20:30 | NUR ---
NUCLEAR TEST TECHNICIAN IN ROOM TO ASSIST pt TO REPOSITION. COFFEE PROVIDED. VSS. ASSESSMENT COMPLETE. pt RATES PAIN 5/10 IN BACK, DENIES NEED FOR PRN PAIN MEDICATION, REQUESTING TO WAIT FOR SLEEP. CALL LIGHT IN REACH. NO ADDITIONAL REQUESTS.
--- NOTE | 2022-02-01 21:30 | NUR ---
pt RESTING IN BED WATCHING TV. RATES PAIN /10. PRN TYLENOL ADMINISTERED. SCHEDULED MEDICATIONS ADMINISTERED. pt DENIES ANY NEEDS. CALL LIGHT IN LAP.
--- NOTE | 2022-02-01 22:11 | NUR ---
pt RESTING IN BED WITH EYES CLOSED. WARM BLANKET PLACED ON pt PER EARLIER REQUEST. pt OPENS EYES BRIEFLY AND BACK TO SLEEP. CALL LIGHT IN REACH.
--- NOTE | 2022-02-01 22:51 | NUR ---
assiste pt to reposition to his left side. pillows to back for support. pt stated he was comfortable
--- NOTE | 2022-02-01 23:23 | NUR ---
pt continues to rest on his left side, eyes are close and rr is deep and even, NAD
--- NOTE | 2022-02-02 00:46 | NUR ---
PT REQUESTED TO BE TURNED . HE WAS TURNED O HIS RIGHT SIDE BYY 2 STAFF WITH PILLOW SUPPORT AT HIS BACK. CALL LIGHT IN REACH.
--- NOTE | 2022-02-02 01:56 | NUR ---
pt RESTING IN BED ON RIGHT SIDE. BREATHING EQUAL AND UNLABORED. NO DISTRESS NOTED.
--- NOTE | 2022-02-02 05:00 | NUR ---
CHECKED ON pt. RESTING IN BED WITH EYES CLOSED. BREATHING UNLABORED. CALL LIGHT IN REACH.
--- NOTE | 2022-02-02 06:39 | NUR ---
pt RESTING IN BED AWAKE. DENIES PAIN AT REST. URINAL EMPTIED. VSS. ASSESSMENT COMPLETE. pt INCONTINENT OF URINE. FULL BEDDING CHANGE, ATTENDS CHANGED, GOWN CHANGED. COFFEE AND WARM BLANKET PROVIDED. CALL LIGHT IN REACH.
--- NOTE | 2022-02-02 07:25 | NUR ---
PATIENT SWABED, AND SAMPLE TAKEN TO LAB FOR ANALYSIS.
--- NOTE | 2022-02-02 09:00 | NUR ---
REPORT RECEIVED FROM NIGHT RN AND PT. CARE RESUMED. PT. IS ALERT AND ORIENTED TO SELF. HE C/O BACK ACHE. BRACE IN PLACE AND LIDOCAINE PATCH APPLIED TO MIDBACK. ASSESSMENT COMPLETED. PT RESTING IN CHAIR WITH CALL LIGHT IN REACH AND ALARM ON, CURTAIN OPEN IN VIEW OF NURSES STATION.
--- NOTE | 2022-02-02 11:02 | NUR ---
ROUNDING ON PT. URINAL EMPTIED AND BRIEF DRY. PT. C/O BACK PAIN AND REQUESTS PAIN MED. PT. BROUGHT TYLENOL BUT REFUSED. HELPED BY ADMINISTRATIVE PERSONAL ASSISTANT BACK TO BED AND ASSISTED WITH REPOSITIONING. LEFT RESTING WITH BED ALARM ON.
--- NOTE | 2022-02-02 12:54 | NUR ---
PT CRYING IN PAIN AFTER TRANSFERING TO WHEELCHAIR FOR DISCHARGE. DR NOTIFIED. OKAY'D TO GIVE CELEBREX EARLY AND TYLENOL ALSO ADMISNTERED. PT DC'D IN WHEELCAHIR WITH DAUGHTER.
--- NOTE | 2022-02-02 13:50 | NUR ---
PT ASLEEP, DID NOT DISTURB. WILL FOLLOW
== END 2022-02-02 12:51 | DRG 542 ==
LOC: ED 13:33 → MS 13:34
PROVIDERS: ADMIT Internal Medicine; ATTEND Internal Medicine
DX: M48.56XA Collapsed vertebra, not elsewhere classified, lumbar region, initial encounter for fracture (principal); G92.8 Other toxic encephalopathy; I48.21 Permanent atrial fibrillation; E78.5 Hyperlipidemia, unspecified; T42.6X5A Adverse effect of other antiepileptic and sedative-hypnotic drugs, initial encounter; N40.0 Benign prostatic hyperplasia without lower urinary tract symptoms; E11.42 Type 2 diabetes mellitus with diabetic polyneuropathy; Z20.822 Contact with and (suspected) exposure to COVID-19; I25.2 Old myocardial infarction; Z98.1 Arthrodesis status; Z98.890 Other specified postprocedural states; Z95.1 Presence of aortocoronary bypass graft; Z88.0 Allergy status to penicillin; Z88.1 Allergy status to other antibiotic agents; Z88.5 Allergy status to narcotic agent; Z88.8 Allergy status to other drugs, medicaments and biological substances; Z79.01 Long term (current) use of anticoagulants; Z79.84 Long term (current) use of oral hypoglycemic drugs; Z79.899 Other long term (current) drug therapy; W18.39XA Other fall on same level, initial encounter; Y92.002 Bathroom of unspecified non-institutional (private) residence as the place of occurrence of the external cause
CPT/HCPCS: 36415; 51702; 51798; 70450; 71045; 72100; 80048; 80053; 80162; 81001; 82553; 83036; 83605; 83735; 84484; 85025; 87040; 87502; 93005; 93010; 97110; 97162; 97166; 97530; 97535; 99285-25; A9270; C9803; J1815; J1885; J3475; J7030; J7040; U0003